=== PATIENT | male | born 1955 | race Caucasian/White ===

== ENCOUNTER 2017-08-31 09:43 | Emergency (ER) | payer BC ==
[2017-08-31] MEDS ORDERED: Ondansetron 4 MG/2 ML SDV IVPUSH ONE ×2 (10:37→12:09)
[2017-08-31] MEDS ORDERED: Sodium Chloride 0.9% 1,000 ML IV SCH ×2 (10:45→12:15)
[2017-08-31] MEDS ORDERED: Sodium Polystyrene Sulfonate 15 GM/60 ML Susp 60 ML Bot PO ONE (11:14)
--- NOTE | 2017-08-31 11:34 | EDM.PDOC ---
ED HPI GENERAL MEDICAL PROBLEM - General Chief Complaint: Gastrointestinal Problem Stated Complaint: VOMITING Time Seen by Provider: 08/31/17 11:28 Source of Information: Reports: Patient History Limitations: Reports: No Limitations - History of Present Illness INITIAL COMMENTS - FREE TEXT/NARRATIVE: Pt arrived with a history of profuse diarrhea and vomiting since Tuesday. He is feeling very weak and washed out. He has had cramping abdomanal pain but no consistent localized pain. Onset: Other ( tuesday. ) Duration: Day(s):, Getting Worse Location: Reports: Abdomen, Other (marked weakness) Quality: Reports: Ache Associated Symptoms: Reports: Nausea/Vomiting, Other ( diarrhes. ) Abdomin Pain Score (Numeric/FACES): 6 - Related Data Allergies Allergy/AdvReac Type Severity Reaction Status Date / Time No Known Allergies Allergy Verified 08/31/17 10:11 Home Meds: Home Meds Aspirin [Adult Low Dose Aspirin EC] 81 mg PO DAILY 08/31/17 [History] Canagliflozin [Invokana] 100 mg PO ACBREAKFAST 08/31/17 [History] Lisinopril/Hydrochlorothiazide [Lisinopril-Hctz 20-12.5 mg Tab] 1 each PO DAILY 08/31/17 [History] Rosuvastatin Calcium [Rosuvastatin Calcium] 10 mg PO BEDTIME 08/31/17 [History] metFORMIN HCl [Metformin HCl] 1,000 mg PO BID 08/31/17 [History] Past Medical History HEENT History: Reports: Impaired Vision Cardiovascular History: Reports: High Cholesterol, Hypertension, Other (See Below) Other Cardiovascular History: rumatic fever Endocrine/Metabolic History: Reports: Diabetes, Type II, Obesity/BMI 30+ - Infectious Disease History Infectious Disease History: Reports: Chicken Pox, Measles, Rheumatic Fever - Past Surgical History Cardiovascular Surgical History: Reports: None Social & Family History - Tobacco Use Smoking Status *Q: Never Smoker Second Hand Smoke Exposure: No - Caffeine Use Caffeine Use: Reports: Coffee - Recreational Drug Use Recreational Drug Use: No ED ROS GENERAL - Review of Systems Review Of Systems: See Below Constitutional: Reports: No Symptoms, Weakness, Fatigue HEENT: Reports: No Symptoms Respiratory: Reports: No Symptoms Cardiovascular: Reports: No Symptoms Endocrine: Reports: No Symptoms GI/Abdominal: Reports: Anorexia, Diarrhea, Decreased Appetite, Nausea, Vomiting , Other ( diffuse abdomanal pain) : Reports: Other (pt has voided very little in the last 2 days. ) Musculoskeletal: Reports: Other ( weakness in the muscles. ) Skin: Reports: No Symptoms ED EXAM, GI/ABD - Physical Exam Exam: See Below Text/Narrative:: pt arrived with a history of marked vomiting and diarrhea. He is feeling very weak and has some crampy abdomanal pain. Exam Limited By: No Limitations General Appearance: Alert, Moderate Distress, Other ( very dehydrated. pupils are equal and reactive) Ears: Normal TMs Nose: Normal Inspection Throat/Mouth: Normal Inspection Head: Atraumatic Neck: Normal Inspection Respiratory/Chest: No Respiratory Distress Cardiovascular: Regular Rate, Rhythm GI/Abdominal Exam: Distended, Other ( Pt has mild distention) (Male) Exam: Normal Inspection, Deferred Rectal (Males) Exam: Deferred Back Exam: Normal Inspection, Muscle Spasm, Other ( pt had back surgery in Nov. ) Extremities: Normal Inspection Neurological: Alert, Oriented, Normal Cognition Psychiatric: Normal Affect Course - Vital Signs Last Recorded V/S: Last Vital Signs Temp 35.7 C 08/31/17 13:00 Pulse 104 H 08/31/17 13:00 Resp 28 H 08/31/17 13:00 BP 111/43 L 08/31/17 13:00 Pulse Ox 96 08/31/17 13:00 Orthostatic Blood Pressure [ 97/47 Sitting] Orthostatic Blood Pressure [ 103/56 Supine] - Orders/Labs/Meds Orders: Active Orders 24 hr Category Date Time Status Cardiac Monitoring [RC] .As Directed Care 08/31/17 11:45 Active EKG Documentation Completion [RC] ASDIRECTED Care 08/31/17 11:34 Active RT Aerosol Therapy [RC] ASDIRECTED Care 08/31/17 11:56 Active Abdomen Pelvis wo Cont [CT] Stat Exams 08/31/17 12:26 Taken CLOSTRIDIUM DIFFICILE BY PCR [RM] Stat Lab 08/31/17 10:44 Uncollected CULTURE STOOL + SHIGATOX [RM] Stat Lab 08/31/17 10:45 Uncollected OVA AND PARASITES [MREF] Stat Lab 08/31/17 10:45 Uncollected UA W/MICROSCOPIC [URIN] Urgent Lab 08/31/17 10:25 Uncollected Sodium Chloride 0.9% [Normal Saline] 1,000 ml Med 08/31/17 10:45 Active IV ASDIRECTED Sodium Chloride 0.9% [Normal Saline] 1,000 ml Med 08/31/17 12:15 Active IV ASDIRECTED EKG 12 Lead [EK] Routine Ther 08/31/17 11:34 Ordered Medication Orders Sodium Chloride (Normal Saline) 1,000 mls @ 999 mls/hr IV ASDIRECTED SIRI Last Admin: 08/31/17 10:48 Dose: 999 mls/hr Sodium Chloride (Normal Saline) 1,000 mls @ 999 mls/hr IV ASDIRECTED SIRI Last Admin: 08/31/17 12:16 Dose: 999 mls/hr Labs: Laboratory Tests 08/31/17 08/31/17 08/31/17 Range/Units 10:30 10:30 10:30 WBC 13.7 H (4.5-11.0) K/uL RBC 4.96 (4.30-5.90) M/uL Hgb 14.4 (12.0-15.0) g/dL Hct 44.5 (40.0-54.0) % MCV 90 (80-98) fL MCH 29 (27-31) pg MCHC 32 (32-36) % Plt Count 304 (150-400) K/uL Neut % (Auto) 86 H (36-66) % Lymph % (Auto) 9 L (24-44) % [place] % (Auto) 5 (2-6) % Eos % (Auto) 0 L (2-4) % Baso % (Auto) 0 (0-1) % Sodium 136 L (140-148) mmol/L Potassium 7.8 H* (3.6-5.2) mmol/L Chloride 98 L (100-108) mmol/L Carbon Dioxide 9 L (21-32) mmol/L Anion Gap 36.8 H (5.0-14.0) mmol/L BUN 80 H* (7-18) mg/dL Creatinine 13.1 H* (0.8-1.3) mg/dL Est Cr Clr Drug Dosing 5.51 mL/min Estimated GFR (MDRD) 4 L (>60) Glucose 60 L (74-106) mg/dL Calcium 8.7 (8.5-10.1) mg/dL Total Bilirubin 0.5 (0.2-1.0) mg/dL AST 23 (15-37) U/L ALT 33 (12-78) U/L Alkaline Phosphatase 72 (46-116) U/L C-Reactive Protein 3.25 H (0.0-0.3) mg/dL Total Protein 7.4 (6.4-8.2) g/dL Albumin 3.3 L (3.4-5.0) g/dL Globulin 4.1 H (2.3-3.5) g/dL Albumin/Globulin Ratio 0.8 L (1.2-2.2) 08/31/17 08/31/17 Range/Units 12:24 12:24 WBC (4.5-11.0) K/uL RBC (4.30-5.90) M/uL Hgb (12.0-15.0) g/dL Hct (40.0-54.0) % MCV (80-98) fL MCH (27-31) pg MCHC (32-36) % Plt Count (150-400) K/uL Neut % (Auto) (36-66) % Lymph % (Auto) (24-44) % [place] % (Auto) (2-6) % Eos % (Auto) (2-4) % Baso % (Auto) (0-1) % Sodium (140-148) mmol/L Potassium 7.5 H* (3.6-5.2) mmol/L Chloride (100-108) mmol/L Carbon Dioxide (21-32) mmol/L Anion Gap (5.0-14.0) mmol/L BUN (7-18) mg/dL Creatinine (0.8-1.3) mg/dL Est Cr Clr Drug Dosing mL/min Estimated GFR (MDRD) (>60) Glucose 161 H (74-106) mg/dL Calcium (8.5-10.1) mg/dL Total Bilirubin (0.2-1.0) mg/dL AST (15-37) U/L ALT (12-78) U/L Alkaline Phosphatase (46-116) U/L C-Reactive Protein (0.0-0.3) mg/dL Total Protein (6.4-8.2) g/dL Albumin (3.4-5.0) g/dL Globulin (2.3-3.5) g/dL Albumin/Globulin Ratio (1.2-2.2) Meds: Medications Generic Name Dose Route Start Last Admin Trade Name Freq PRN Reason Stop Dose Admin Sodium Chloride 1,000 mls @ 999 mls/hr 08/31/17 10:45 08/31/17 10:48 Normal Saline IV 999 mls/hr ASDIRECTED SIRI Administration Sodium Chloride 1,000 mls @ 999 mls/hr 08/31/17 12:15 08/31/17 12:16 Normal Saline IV 999 mls/hr ASDIRECTED SIRI Administration Discontinued Medications Generic Name Dose Route Start Last Admin Trade Name Freq PRN Reason Stop Dose Admin Albuterol 2.5 mg 08/31/17 11:55 08/31/17 12:10 Proventil Neb Soln NEB 08/31/17 11:56 2.5 mg ONETIME ONE Administration Albuterol Confirm 08/31/17 12:10 Proventil Neb Soln Administered 08/31/17 12:11 Dose 2.5 mg .ROUTE .STK-MED ONE Calcium Gluconate 1 gm 08/31/17 11:54 08/31/17 12:10 Calcium Gluconate IVPUSH 08/31/17 11:55 1 gm ONETIME ONE Administration Dextrose/Water 50 ml 08/31/17 11:59 08/31/17 12:13 Dextrose 50% In Water IVPUSH 08/31/17 12:00 50 ml ONETIME ONE Administration Hydromorphone HCl 0.5 mg 08/31/17 12:35 08/31/17 12:54 Dilaudid IVPUSH 08/31/17 12:36 0.5 mg ONETIME ONE Administration Hydromorphone HCl 0.5 mg 08/31/17 13:06 Dilaudid IVPUSH 08/31/17 13:07 ONETIME ONE Hydromorphone HCl Confirm 08/31/17 13:08 Dilaudid Administered 08/31/17 13:09 Dose 0.5 mg .ROUTE .STK-MED ONE Insulin Human Regular 10 unit 08/31/17 11:57 08/31/17 12:08 Novolin R IVPUSH 08/31/17 11:58 10 units ONETIME ONE Administration Protocol Ondansetron HCl 4 mg 08/31/17 10:37 08/31/17 10:52 Zofran IVPUSH 08/31/17 10:38 4 mg ONETIME ONE Administration Ondansetron HCl 4 mg 08/31/17 12:09 08/31/17 12:16 Zofran IVPUSH 08/31/17 12:10 4 mg ONETIME ONE Administration Sodium Polystyrene Sulfonate 15 gm 08/31/17 11:14 08/31/17 11:32 Kayexalate PO 08/31/17 11:15 15 gm ONETIME ONE Administration - Re-Assessments/Exams Free Text/Narrative Re-Assessment/Exam: 08/31/17 11:47 pt had a k of 7.8. His creatnine is 13, his bun is 80. He has a liter of flui running wide open. He had a bladder scan which showed no urine in the bladder. He was given kexelate 15 ml. 08/31/17 12:11 pt was given 10 units of regular insulin iv push, ca gluconate 1 gm, d50 1 amp. She was given a albuterol neb. 08/31/17 13:11 pt suddenly developed more acute abdomanal pain for that reason he had a cat scan of the abdoman done which did not show acute findings. Departure - Departure Time of Disposition: 13:13 Disposition: DC/Tfer to Acute Hospital 02 Condition: Fair Clinical Impression: Hyperkalemia, Renal insufficiency, Dehydration, Diarrhea - Discharge Information Referrals: Jose Hughes PA-C [Primary Care Provider] - Forms: ED Department Discharge Care Plan Goals: transfer to [facility]. - My Orders Last 24 Hours: My Active Orders 08/31/17 10:25 UA W/MICROSCOPIC [URIN] Urgent 08/31/17 10:44 CLOSTRIDIUM DIFFICILE BY PCR [RM] Stat 08/31/17 10:45 CULTURE STOOL + SHIGATOX [RM] Stat OVA AND PARASITES [MREF] Stat Sodium Chloride 0.9% [Normal Saline] 1,000 ml IV ASDIRECTED 08/31/17 11:34 EKG Documentation Completion [RC] ASDIRECTED EKG 12 Lead [EK] Routine 08/31/17 11:45 Cardiac Monitoring [RC] .As Directed 08/31/17 11:56 RT Aerosol Therapy [RC] ASDIRECTED 08/31/17 12:15 Sodium Chloride 0.9% [Normal Saline] 1,000 ml IV ASDIRECTED 08/31/17 12:26 Abdomen Pelvis wo Cont [CT] Stat - Assessment/Plan Last 24 Hours: My Active Orders 08/31/17 10:25 UA W/MICROSCOPIC [URIN] Urgent 08/31/17 10:44 CLOSTRIDIUM DIFFICILE BY PCR [RM] Stat 08/31/17 10:45 CULTURE STOOL + SHIGATOX [RM] Stat OVA AND PARASITES [MREF] Stat Sodium Chloride 0.9% [Normal Saline] 1,000 ml IV ASDIRECTED 08/31/17 11:34 EKG Documentation Completion [RC] ASDIRECTED EKG 12 Lead [EK] Routine 08/31/17 11:45 Cardiac Monitoring [RC] .As Directed 08/31/17 11:56 RT Aerosol Therapy [RC] ASDIRECTED 08/31/17 12:15 Sodium Chloride 0.9% [Normal Saline] 1,000 ml IV ASDIRECTED 08/31/17 12:26 Abdomen Pelvis wo Cont [CT] Stat
[2017-08-31] MEDS ORDERED: Calcium Gluconate 10% 1 GM/10 ML SDV IVPUSH ONE (11:54)
[2017-08-31] MEDS ORDERED: Albuterol 0.083% 2.5 MG/3 ML Neb Soln NEB ONE (11:55)
[2017-08-31] MEDS ORDERED: Insulin Regular, Human 100 Units/ML 10 ML Vial IVPUSH ONE (11:57)
[2017-08-31] MEDS ORDERED: 50% Dextrose in Water 50 ML Syringe IVPUSH ONE (11:59)
[2017-08-31] MEDS ORDERED: Albuterol 0.083% 2.5 MG/3 ML Neb Soln ONE (12:10)
[2017-08-31] MEDS ORDERED: HYDROmorphone 0.5 MG/0.5 ML Syringe IVPUSH ONE ×2 (12:35→13:06)
[2017-08-31 13:02] VITALS: BP 111/43
[2017-08-31] MEDS ORDERED: HYDROmorphone 0.5 MG/0.5 ML Syringe ONE (13:08)
--- NOTE | 2017-08-31 13:12 | CT ---
Abdomen Pelvis wo Cont HISTORY: abdominal pain Axial spiral noncontrasted CT scan of the abdomen and pelvis was obtained along with coronal reconstr uctions. There are no prior exams for comparison. FINDINGS: Scattered small calcified granulomas are demonstrated at the lung bases. Heart size is normal. There is no pleural fluid. Abdominal aorta is not dilated. Scattered atherosclerotic vascular calcification is seen. I see no signs of abdominal aortic aneurysm. No obvious focal abnormality of the liver or spleen is identified on this noncontrasted exam. Tiny ca lcified granulomas can be seen in the spleen. Gallbladder appears contracted. I see no biliary duct d ilatation. There is no focal abnormality of the pancreas or adrenal glands. No renal or ureteral calculi are identified. There is no hydronephrosis or ureteral dilatation. No pe lvic mass or abnormal fluid collections are identified. I see no pelvic, retroperitoneal, or mesenter ic adenopathy. There is no free air or free fluid. Diffuse degenerative and hypertrophic changes are noted lower thoracic and lumbar spine. Degenerative changes are most prominent L3-4, L4-5, and L5-S1. No lytic or blastic bony lesion is seen. Small bowel loops are nondistended. I see no signs of appendicitis. No diverticular disease is identi fied. I see no signs of bowel obstruction. IMPRESSION: 1. No acute intra-abdominal or pelvic abnormality is identified on this noncontrasted exam. 2. Gallbladder is contracted. No obvious calcified gallstones can be seen. 3. Scattered atherosclerotic vascular calcification. No signs of abdominal aortic aneurysm. 4. Evidence of old healed granulomatous disease as above. 5. Degenerative and hypertrophic changes lower thoracic and lumbar spine most prominent L3-4 through L5-S1. Findings were discussed with Dr. Wang in the emergency department at the time of the exam. Total DLP 1601 mGycm
== END 2017-08-31 13:20 ==
LOC: JP.ED 09:43
DX: E86.0 Dehydration (principal); E87.5 Hyperkalemia; N28.9 Disorder of kidney and ureter, unspecified; R19.7 Diarrhea, unspecified; I10 Essential (primary) hypertension; E78.00 Pure hypercholesterolemia, unspecified; E11.9 Type 2 diabetes mellitus without complications; E66.9 Obesity, unspecified; Z79.82 Long term (current) use of aspirin; Z79.84 Long term (current) use of oral hypoglycemic drugs; Z79.899 Other long term (current) drug therapy; Z68.42 Body mass index [BMI] 45.0-49.9, adult
CPT/HCPCS: 36415; 74176; 80053; 82947; 84132; 85025; 86140; 93005; 96361; 96374; 96375; 96376; 99285; A9270; J0610; J1170; J2405; J7040

== ENCOUNTER 2023-11-03 08:09 | Day surgery (SDC) | payer BC, MEDICARE, OTHER ==
[~2023-11-03 08:09] MED LIST: Midazolam 1 MG/ML 2 ML SDV ONE; Propofol 200 MG/20 ML SDV ONE; fentaNYL 50 MCG/ML SDV ONE
[2023-11-03] MEDS ORDERED: Lactated Ringers 1,000 ML IV SCH (09:00)
[2023-11-03] MEDS ORDERED: Ondansetron 4 MG/2 ML SDV ONE (10:50)
[2023-11-03 11:19] VITALS: PULSE 74
[2023-11-03 11:50] VITALS: BP 132/78
== END 2023-11-03 11:52 | disposition home or self-care (01) ==
LOC: JP.SDS 08:09
PROVIDERS: ATTEND Student in an Organized Health Care Education/Training Program
DX: D12.2 Benign neoplasm of ascending colon (principal); D12.3 Benign neoplasm of transverse colon; D12.4 Benign neoplasm of descending colon; K57.30 Diverticulosis of large intestine without perforation or abscess without bleeding; I10 Essential (primary) hypertension; E11.9 Type 2 diabetes mellitus without complications; E78.5 Hyperlipidemia, unspecified; E66.01 Morbid (severe) obesity due to excess calories; Z68.36 Body mass index [BMI] 36.0-36.9, adult; Z88.8 Allergy status to other drugs, medicaments and biological substances
CPT/HCPCS: 45380; 45385; 88305; J2250; J2704; J3010; J7120; J2405